=== PATIENT | male | born 1965 | race Caucasian/White ===

== ENCOUNTER 2020-07-29 18:03 | Emergency (ER) | payer OTHER ==
[~2020-07-29] VITALS: Ht 167.6 cm; Wt 72.6 kg
--- NOTE | 2020-07-29 18:05 | NUR ---
[facility] FOR [facility]SE BLEED. PER EMS HYPOTENSIVE IN THE FIELD. 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 THE PATIENT NOTED WITH NASAL PACKING. DENIES ANY PAIN. IN ROOM AIR AND DENIES SOB. RESPIRATION REGULAR AND UNLABORED. THE PATIENT IS ATTACHED TO THE MONITOR. BLANKET PROVIDED FOR COMFORT. WILL CONTINUE TO MONITOR THE PATIENT.
[2020-07-29] MEDS ORDERED: TRANEXAMIC ACID 1,000 MG/10 ML VIAL ONE (18:36)
--- NOTE | 2020-07-29 18:37 | NUR ---
TRANEXAMIC ACID ORDERED PER DR DEMARCO. READ BACK, NOTED AND CARRIED OUT. Addendum: 07/29/20 at 1839 by LSARGSYAN SECOND DOSE NOT GIVEN BECAUSE IT IS A DOUBLE ORDER.
[2020-07-29 18:53] LABS: BASOPHILS # (AUTO) 0.1 /CMM (0.0-0.2); BASOPHILS % (AUTO) 0.5 % (0.0-2.0); EOSINOPHILS % (AUTO) 1.5 % (0.0-6.0); HEMATOCRIT 34 % (39-51); HEMOGLOBIN 10.7 g/dL (13.5-17.5); LYMPHOCYTES # (AUTO) 1.4 /CMM (0.8-4.8); LYMPHOCYTES % (AUTO) 10.4 % (20.0-44.0); MEAN CORPUSCULAR HGB CONC 32 g/dl (31.0-36.0); MEAN CORPUSCULAR VOLUME 70 fL (80-96); MONOCYTES # (AUTO) 0.7 /CMM (0.1-1.30); MONOCYTES % (AUTO) 5.2 % (2.0-12.0); NEUTROPHILS # (AUTO) 11.3 /CMM (1.8-8.9); NEUTROPHILS % (AUTO) 82.4 % (43.0-81.0); PLATELET COUNT (AUTO) 277 /CMM (150-450); RED BLOOD CELL COUNT(AUTO) 4.81 MIL/uL (4.5-6.0); WHITE BLOOD COUNT (AUTO) 13.8 K/uL (4.3-11.0)
[2020-07-29] MEDS ORDERED: TRANEXAMIC ACID 1,000 MG/10 ML VIAL IR ONE ×2 (19:00)
--- NOTE | 2020-07-29 19:00 | NUR ---
the patient has no nasal bleeding. respiration regular and unlabored. denies pain
--- NOTE | 2020-07-29 19:44 | NUR ---
DR CHRISTINA PAGED PER DR DEMARCO
--- NOTE | 2020-07-29 20:14 | NUR ---
Patient discharged to home in stable condition. Written and verbal after care instructions given. Patient verbalizes understanding of instruction. IV removed. Catheter intact and site benign. Pressure and 4x4 applied to site. No bleeding noted. Pt ambulatory with a steady gait
[2020-07-29 20:18] VITALS: BP 125/86
== END 2020-07-29 20:14 | disposition home or self-care (01) ==
LOC: ER 18:07
DX: R04.0 Epistaxis (principal); I10 Essential (primary) hypertension; Z88.0 Allergy status to penicillin
CPT/HCPCS: 36415; 85025-TC